=== PATIENT | female | born 1975 | race Caucasian/White ===

== ENCOUNTER 2017-04-12 17:23 | Emergency (ER) | payer OTHER ==
[~2017-04-12] VITALS: Ht 162.6 cm; Wt 73.0 kg
--- NOTE | ~2017-04-12 | US84 ---
[id number] [facility] [address] [facility]. [place], [place] [address] [id number] E MR#: [id number] Acc #: [id number] NAME: CONCEPCIÓN RYDER : 1975 SEX: F STUDY DATE/TIME: 04/12/2017 18:30 UNIT: CFTX ROOM: STUDY DESCRIPTION: US LE Veins Complete Scott Stdy Attending Physician: Maddie Baptiste A.P.R.N. Referring Physician: Osvaldo Arredondo M.D. Ordering Physician: Ed Doc Carlos Tuttle Primary Care Physician: No Primary Care Physician MEDICAL IMAGING REPORT This report is preliminary unless electronic signature is present EXAM Bilateral lower extremity venous duplex ultrasound, 04/12/2017. HISTORY 41-year-old female with bilateral lower extremity pain and swelling for 2 weeks. COMPARISON STUDIES None. FINDINGS Real time mccauley-scale, color Doppler, and spectral Doppler analysis of the bilateral lower extremity deep venous system demonstrates normal venous waveforms with normal compressibility and augmentation throughout. No evidence of bilateral lower extremity deep venous thrombosis. IMPRESSION Negative for bilateral lower extremity DVT. Dictated by... Olivier Miguel M.D. THIS IS AN ELECTRONICALLY VERIFIED REPORT Olivier Miguel M.D. at 04/13/2017 10:29 PM MAU/laxmi TD: 04/13/2017 22:16 JOB #: [id number] MEDICAL IMAGING REPORT Page 1 of 1 COPY
[2017-04-12 18:18] LABS: BASOPHIL# 0.1 X10e3 (0-0.3); BASOPHIL% 2.1 % (0-2.5); EOSINOPHIL# 0.3 X10e3 (0-0.7); EOSINOPHIL% 7.5 % (0.0-7.0); HEMOGLOBIN 9.5 gm/dL (12.0-16.0); LYMPHOCYTE# 1.7 X10e3 (1.0-3.5); LYMPHOCYTE% 40.9 % (17.0-45.0); MEAN CORPUSCULAR HEMOGLOBIN 23.7 PG (28-34); MEAN CORPUSCULAR HGB CONC 31.6 g/dL (30-36); MEAN PLATELET VOLUME 7.3 FL (6.5-11.5); MONOCYTE# 0.3 X10e3 (0-1.0); MONOCYTE% 7.5 % (3.0-12.0); NEUTROPHIL# 1.7 X10e3 (1.5-7.1); PLATELET COUNT 246 X10e3 (140-420); RED BLOOD COUNT 4.01 X10e (3.90-5.30); RED CELL DISTRIBUTION WIDTH 17.6 % (11.0-15.5); WHITE BLOOD COUNT 4.1 X10e3 (4.0-10.5)
[2017-04-12 18:21] LABS: DIFF IND NO
[2017-04-12 18:43] LABS: BUN/CREATININE RATIO 17.14; CALCIUM SERUM 9.2 mg/dL (8.4-10.2); CREATININE SERUM 0.7 mg/dL (0.6-1.4); GLOM FILT RATE Estimated 106.1 mL/min (>60)
== END 2017-04-12 19:30 | disposition home or self-care (01) ==
LOC: CFTX 17:23 → CED 17:23 → CFTX 18:03
PROVIDERS: Nurse Practitioner
DX: R60.0 Localized edema (principal); D64.9 Anemia, unspecified; F41.9 Anxiety disorder, unspecified; F32.9 Major depressive disorder, single episode, unspecified; I10 Essential (primary) hypertension; F17.210 Nicotine dependence, cigarettes, uncomplicated; Z98.890 Other specified postprocedural states
CPT/HCPCS: 36415; 80048; 83880; 85025; 93970; 99284